=== PATIENT | male | born 1990 | race African-American/Black ===

== ENCOUNTER 2018-07-04 02:13 | Emergency (ER) | payer SELFPAY ==
[~2018-07-04] VITALS: Ht 188 cm; Wt 104.5 kg
[2018-07-04] MEDS ORDERED: PredniSONE 20 MG TABLET PO ONE (03:30)
[2018-07-04 04:24] VITALS: BP 135/87
== END 2018-07-04 04:29 | disposition home or self-care (01) ==
LOC: EMS 02:15
DX: L42 Pityriasis rosea (principal); Z91.011 Allergy to milk products
CPT/HCPCS: 36415; 86765; 99283; J7512